=== PATIENT | female | born 1980 | race Caucasian/White ===

== ENCOUNTER 2017-12-29 15:41 | Emergency (ER) | payer BC ==
[~2017-12-29] VITALS: Ht 172.7 cm; Wt 117.2 kg
[~2017-12-29 15:41] MED LIST: ASPIR-LOW81 MG PO; CRANBERRY500 M2 PO; ENDOCET 5-3251 EACH PO; ESSENTIAL WOMA1 EAC1 PO; HYDROCHLOROTH12.5 M3 PO; HYDROCODON-ACE1 EA11 PO; Motrin PO; NITROFURANTOIN50 MG PO; NOHOMEMEDS; PRISTIQ50 MG PO; TIZANIDINE HCL4 M1 PO; ZYRTEC10 M2 PO
[2017-12-29 16:33] LABS: HEMATOCRIT 41.3 % (36.0-46.0); HEMOGLOBIN 14.5 G/DL (11.9-15.5); MCH 30.7 PG (29.0-34.0); MCHC 35.1 G/DL (30.0-36.0); MCV 87.5 FL (83-99); PLATELET COUNT 293 K/uL (156-360); RBC DIS.WIDTH-CV 12.8 % (11.8-14.6); RBC DIS.WIDTH-SD 40.6 % (39-53); RED BLOOD COUNT 4.72 M/uL (3.80-5.20); WHITE BLOOD COUNT 13.1 K/uL (4.1-10.2)
[2017-12-29 16:55] LABS: CHLORIDE 103 mEq/L (99-109); POTASSIUM 3.2 mEq/L (3.7-5.4); SODIUM 136 mEq/L (136-147)
[2017-12-29 16:57] LABS: GLUCOSE 119 mg/dL (70-99)
[2017-12-29 17:00] LABS: CREATININE 0.9 mg/dL (0.6-1.3); GFR ESTIMATE (CALCULATED) > 59 mL/min/
[2017-12-29 17:01] LABS: UREA NITROGEN (BUN) 9 mg/dL (9-23)
[2017-12-29 17:08] LABS: TROP-I INTERPRETATION NEGATIVE; TROPONIN-I < 0.01 ng/mL (0.0-0.30)
[2017-12-29 18:47] VITALS: BP 123/84
== END 2017-12-29 19:04 | disposition home or self-care (01) ==
LOC: EME 15:41
PROVIDERS: Emergency Medicine
DX: R00.2 Palpitations (principal); R55 Syncope and collapse; E86.0 Dehydration; I10 Essential (primary) hypertension; F32.9 Major depressive disorder, single episode, unspecified; Z87.891 Personal history of nicotine dependence; Z88.5 Allergy status to narcotic agent
CPT/HCPCS: 71046; 80048; 84484; 85027; 93005; 99281; 99285; J7030